=== PATIENT | female | born 2000 | race Caucasian/White ===

== ENCOUNTER 2020-02-03 09:26 | Emergency (ER) | payer OTHER ==
--- NOTE | 2020-02-03 10:42 | ED.PDOC ---
History of Present Illness - General Chief Complaint: Skin/Abrasion/Tear Time Seen by Provider: 02/03/20 10:24 Source: patient Exam Limitations: no limitations - History of Present Illness Initial Comments: Patient is a 20-year-old female presenting to the emergency room secondary to swelling erythema of the right upper extremity for last 24 to 48 hours, subsequent to an ant sting. This really looks more like an allergic, hydropic type reaction rather than an infection. No systemic fever. She does have some mild tingling of the hand. Normal strength and range of motion. No evidence of any focal abscess to drain. No evidence of allergic reaction elsewhere. No shortness of breath. Vital signs are stable. Timing/Duration: 24 hours Severity: mild Improving Factors: nothing Worsening Factors: nothing Associated Symptoms: denies symptoms Home Medications: Ambulatory Orders Sulfa/Trimeth 800/160 (Ds) Tab [Bactrim DS Tab] 1 ea PO BID #6 tab 02/03/20 predniSONE [Prednisone] 20 mg PO DAILY #5 tab 02/03/20 Review of Systems - Review of Systems Constitutional: States: no symptoms reported EENTM: States: no symptoms reported Respiratory: States: no symptoms reported Cardiology: States: no symptoms reported Gastrointestinal/Abdominal: States: no symptoms reported Genitourinary: States: no symptoms reported Musculoskeletal: States: no symptoms reported Skin: States: see HPI Neurological: States: see HPI Endocrine: States: no symptoms reported All other Systems: No Change from Baseline Physical Exam - Physical Exam General Appearance: Alert, Comfortable, No apparent distress Eye Exam: bilateral normal Ears, Nose, Throat: hearing grossly normal, normal pharynx Respiratory: lungs clear, normal breath sounds, no respiratory distress, no accessory muscle use, crackles Cardiovascular/Chest: normal peripheral pulses, no edema, other - Regular rate Peripheral Pulses: radial,right: 2+, radial,left: 2+ Rectal Exam: deferred Extremity: normal range of motion, no pedal edema, no calf tenderness, normal capillary refill, other - See history of present illness 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 Progress - Progress Progress: 02/03/20 10:42 The patient is a 20-year-old female presented emergency room secondary to what appears to be most likely a localized urticarial, hydropic type reaction to the right upper extremity from an ant sting. The patient has been taking Benadryl. I would have her switch to Zyrtec twice daily for the next 5 days. Patient will also be written for 5 days of oral prednisone. She does need to keep well-hydrated. It would likely take a week or so for this to go back to normal. She will be written for low-dose Bactrim for the next 3 days for the possibility of infection however I believe that is unlikely given the clinical presentation. ER warnings are given for any worsening. She does need to photo document to make sure it is gradually improving. Keep routine follow- up with primary care doctor otherwise. scar longoria [id number] Departure - Departure Clinical Impression: Urticaria Insect sting Qualifiers: Encounter type: initial encounter Injury intent: accidental or unintentional Qualified Code(s): T63.481A - Toxic effect of venom of other arthropod, accidental (unintentional), initial encounter Disposition: Discharge to Home or Self Care Condition: Fair Departure Forms: ED Discharge - Pt. Copy, Patient Portal Self Enrollment Instructions: DI for Abrasion, Inducible Hives Diet: regular diet Activity: increase activity as tolerated Prescriptions: Sulfa/Trimeth 800/160 (Ds) Tab [Bactrim DS Tab] 1 ea PO BID #6 tab predniSONE [Prednisone] 20 mg PO DAILY #5 tab Home Medications: Ambulatory Orders Sulfa/Trimeth 800/160 (Ds) Tab [Bactrim DS Tab] 1 ea PO BID #6 tab 02/03/20 predniSONE [Prednisone] 20 mg PO DAILY #5 tab 02/03/20 Additional Instructions: The patient is a 20-year-old female presented emergency room secondary to what appears to be most likely a localized urticarial, hydropic type reaction to the right upper extremity from an ant sting. The patient has been taking Benadryl. I would have her switch to Zyrtec twice daily for the next 5 days. Patient will also be written for 5 days of oral prednisone. She does need to keep well-hydrated. It would likely take a week or so for this to go back to normal. She will be written for low-dose Bactrim for the next 3 days for the possibility of infection however I believe that is unlikely given the clinical presentation. ER warnings are given for any worsening. She does need to photo document to make sure it is gradually improving. Keep routine follow- up with primary care doctor otherwise.
[2020-02-03 11:51] VITALS: BP 112/78; TEMP 98.5; O2SAT 99
== END 2020-02-03 11:30 | disposition home or self-care (01) ==
LOC: ER 09:26
DX: T63.421A Toxic effect of venom of ants, accidental (unintentional), initial encounter (principal); Y92.9 Unspecified place or not applicable